=== PATIENT | female | born 1970 | race Two or more races ===

== ENCOUNTER 2021-07-09 10:47 | Inpatient (IN) | payer OTHER ==
[~2021-07-09] VITALS: Ht 180.3 cm; Wt 115.9 kg
[2021-07-09] MEDS ORDERED: MORPHINE SULFATE 4 MG/ML SYR/VIAL IV ONE (12:15)
[2021-07-09] MEDS ORDERED: ONDANSETRON HCL 4 MG/2 ML VIAL IV ONE (12:15)
[2021-07-09] MEDS ORDERED: SODIUM CHLORIDE 0.9% 500 ML IVB ONE (12:15)
[2021-07-09 12:41] LABS: Basophils # (auto) 0 10 ^3/uL (0-0.2); Basophils % (auto) 0.4 % (0.0-2.0); Eosinophils # (auto) 0 10 ^3/uL (0-0.8); Hematocrit 31.7 % (36.0-46.0); Hemoglobin 11.1 g/dL (12.2-16.2); Lymphocytes # (auto) 1.3 10 ^3/uL (0.4-5.4); Lymphocytes % (auto) 17.4 % (10.0-50.0); Mean Corpuscular Hemoglobin 29.9 pg (28.0-32.0); Mean Corpuscular Volume 85.4 fL (80.0-100.0); Monocytes # (auto) 0.6 10 ^3/uL (0-1.3); Monocytes % (auto) 8.1 % (0.0-12.0); Neutrophils # (auto) 5.3 10 ^3/uL (1.6-8.6); Neutrophils % (auto) 74.1 % (37.0-80.0); Red Blood Cells 3.71 10^6/uL (4.0-5.20); White Blood Cell 7.2 10^3/uL (4.4-10.8)
[2021-07-09 12:58] LABS: Albumin 3.3 g/dL (3.4-5.0); BUN/Creatinine Ratio 14.5; Calcium 9.1 mg/dL (8.5-10.1); Potassium 4.2 mmol/L (3.5-5.1)
[2021-07-09 13:01] LABS: Bilirubin, Total 0.6 mg/dL (0.2-1.0); Total Protein 7.5 g/dL (6.4-8.2)
[2021-07-09 15:15] LABS: Urine Bacteria FEW /hpf (None Seen); Urine Blood 1+ /uL (Negative); Urine Specific Gravity 1.014 (1.001-1.035); Urine WBC 34 /hpf (0 - 5)
[2021-07-09] MEDS ORDERED: levoFLOXacin 500MG 100 ML IV ONE (17:30)
[2021-07-09] MEDS ORDERED: MORPHINE SULFATE INJ 2 MG/ml SYRG IV PRN (17:30)
[2021-07-09] MEDS ORDERED: NITROGLYCERIN 0.4 MG SL TAB SL PRN (17:30)
[2021-07-09] MEDS ORDERED: MORPHINE SULFATE INJ 2 MG/ml SYRG IV ONE (17:45)
[2021-07-09] MEDS ORDERED: MORPHINE SULFATE 4 MG/ML SYR/VIAL ONE (17:54)
[2021-07-09] MEDS ORDERED: LABETALOL HCL 5 MG/ML 4ML SYRINGE IV PRN (20:30)
[2021-07-09] MEDS ORDERED: SODIUM CHLORIDE 0.9% 1,000 ML IV SCH (20:30)
[2021-07-09] MEDS ORDERED: CLINDAMYCIN 600MG IV 50 ML IV ONE (20:45)
[2021-07-09] MEDS ORDERED: FAMOTIDINE (10MG/ML) 2ML VL IV ONE (20:45)
[2021-07-09 21:07] LABS: Magnesium 1.2 mg/dL (1.6-2.6); Phosphorus 2.7 mg/dL (2.5-4.90)
[2021-07-09 22:00] VITALS: BP 140/84
[2021-07-09 22:34] VITALS: BP 140/84
[2021-07-09] MEDS: HYDROcodone-ACET 5/325MG TAB PO PRN (22:49)
[2021-07-10] MEDS: LORazepam 0.5 MG TAB PO PRN ×2 (00:01→11:29)
[2021-07-10] MEDS: ONDANSETRON HCL 4 MG/2 ML VIAL IV PRN ×3 (00:26→21:23)
[2021-07-10] MEDS ORDERED: MULT1TAB95 PO (01:03)
[2021-07-10] MEDS ORDERED: CLOT1CRE13 TOP (01:03)
[2021-07-10] MEDS ORDERED: LORA-622 PO (01:03)
[2021-07-10] MEDS ORDERED: METO25TA5 PO (01:03)
[2021-07-10] MEDS ORDERED: BENA-25 PO (01:03)
[2021-07-10] MEDS ORDERED: IBUP800T26 PO (01:03)
[2021-07-10] MEDS ORDERED: HYDR-3682 PO (01:03)
[2021-07-10] MEDS ORDERED: ASPI-498 PO (01:03)
[2021-07-10] MEDS ORDERED: BACL10TA PO (01:03)
[2021-07-10] MEDS ORDERED: PANT1INJ3 PO (01:03)
[2021-07-10] MEDS ORDERED: EZET10TA22 PO (01:03)
[2021-07-10] MEDS ORDERED: METF-370 PO (01:03)
[2021-07-10] MEDS ORDERED: DOCU100T15 PO (01:03)
[2021-07-10] MEDS ORDERED: ERTU5TAB PO (01:03)
[2021-07-10] MEDS ORDERED: CETI10TA2 PO (01:03)
[2021-07-10] MEDS ORDERED: CLINDAMYCIN 600MG IV 50 ML IV SCH (04:00)
[2021-07-10 05:00] VITALS: BP 119/85
[2021-07-10 07:07] LABS: Hematocrit 27.1 % (36.0-46.0); Hemoglobin 10.3 g/dL (12.2-16.2); Mean Corpuscular Hemoglobin 34.7 pg (28.0-32.0); Mean Corpuscular Volume 91.7 fL (80.0-100.0); Red Blood Cells 2.96 10^6/uL (4.0-5.20); Red Cell Distribution Width 14.2 % (11.8-14.3); White Blood Cell 3.6 10^3/uL (4.4-10.8)
[2021-07-10 07:31] LABS: Mean Corpuscular Hgb Conc. 37.9 g/dL (32.0-36.0)
[2021-07-10 07:32] LABS: Basophils % (manual) 0 (0.0-2.0); Blast Cells 0; Eosinophils % (manual) 0 (0-7); Metamyelocytes % 0; Myelocytes % 0; Promyelocytes % 0; Reactive Lymphocytes 0
[2021-07-10 08:00] VITALS: BP 122/76
[2021-07-10 08:13] LABS: Band Neutrophils % (manual) 15; Lymphocytes % (manual) 42 (10.0-50.0); Monocytes % (manual) 14 (0-12)
[2021-07-10 08:47] LABS: Albumin 3.2 g/dL (3.4-5.0); Calcium 8.6 mg/dL (8.5-10.1); Potassium 4.2 mmol/L (3.5-5.1)
[2021-07-10 08:53] LABS: Bilirubin, Total 0.8 mg/dL (0.2-1.0); Total Protein 7.3 g/dL (6.4-8.2)
[2021-07-10 09:00] VITALS: BP 122/76
[2021-07-10] MEDS: MORPHINE SULFATE INJ 2 MG/ml SYRG IV PRN ×2 (09:10→10:56)
[2021-07-10] MEDS: FAMOTIDINE (10MG/ML) 2ML VL IV SCH (09:15)
[2021-07-10] MEDS: ASPirin 81 mg TAB PO SCH (09:20)
[2021-07-10] MEDS: ENOXAPARIN SOD 40 MG/0.4 ML SYRINGE SC SCH (09:20)
[2021-07-10] MEDS: HYDROcodone-ACET 5/325MG TAB PO PRN ×2 (12:14→20:34)
[2021-07-10 13:26] VITALS: BP 106/68
[2021-07-10] MEDS: DOCUSATE SOD 100 MG CAP PO PRN (15:12)
[2021-07-10] MEDS ORDERED: MORPHINE SULFATE INJ 2 MG/ml SYRG IV ONE (15:45)
[2021-07-10 16:50] VITALS: BP 122/77
[2021-07-10 22:00] VITALS: BP 140/83
[2021-07-10] MEDS ORDERED: LACTULOSE 20Gm/30ML SOLN PO PRN (22:00)
[2021-07-10] MEDS ORDERED: TEMAZEPAM 15 MG CAP PO ONE (22:15)
[2021-07-11] MEDS: HYDROcodone-ACET 5/325MG TAB PO PRN ×4 (03:59→20:36)
[2021-07-11 09:00] VITALS: BP 119/79
[2021-07-11] MEDS: ASPirin 81 mg TAB PO SCH ×2 (10:00→10:50)
[2021-07-11] MEDS: ENOXAPARIN SOD 40 MG/0.4 ML SYRINGE SC SCH ×2 (10:00→10:51)
[2021-07-11] MEDS: FAMOTIDINE (10MG/ML) 2ML VL IV SCH ×2 (10:00→10:50)
[2021-07-11 13:00] VITALS: BP 121/77
[2021-07-11 13:05] LABS: Magnesium 1.2 mg/dL (1.6-2.6)
[2021-07-11 13:16] LABS: CRP High Sensitivity 4.49 mg/dL (< 0.3); Phosphorus 3.8 mg/dL (2.5-4.90)
[2021-07-11] MEDS ORDERED: levoFLOXacin 500MG 100 ML IV STA (14:28)
[2021-07-11] MEDS ORDERED: levoFLOXacin 500MG 100 ML IV ONE (14:30)
[2021-07-11 17:16] VITALS: BP 132/79
[2021-07-11 22:00] VITALS: BP 127/81
[2021-07-12] MEDS: HYDROcodone-ACET 5/325MG TAB PO PRN ×4 (03:04→21:41)
[2021-07-12 05:00] VITALS: BP 114/74
[2021-07-12] MEDS: ONDANSETRON HCL 4 MG/2 ML VIAL IV PRN ×3 (07:18→20:47)
[2021-07-12 09:00] VITALS: BP 135/79
[2021-07-12] MEDS: FAMOTIDINE (10MG/ML) 2ML VL IV SCH (09:35)
[2021-07-12] MEDS: ASPirin 81 mg TAB PO SCH (09:35)
[2021-07-12] MEDS: levoFLOXacin 500MG 100 ML IV SCH (09:37)
[2021-07-12] MEDS: ENOXAPARIN SOD 40 MG/0.4 ML SYRINGE SC SCH (09:37)
[2021-07-12] MEDS: DOCUSATE SOD 100 MG CAP PO PRN ×2 (09:37→20:47)
[2021-07-12 13:00] VITALS: BP 124/80
[2021-07-12 17:00] VITALS: BP 135/77
[2021-07-12] MEDS: ACCU-CHEK COMFORT CURVE STRIP VI SCH (21:16)
[2021-07-12] MEDS: GLIMEPIRIDE 2 MG TAB PO SCH (21:17)
[2021-07-12 22:00] VITALS: BP 143/86
[2021-07-12] MEDS ORDERED: ZOLPIDEM TARTRATE 5 MG TAB PO PRN (23:15)
[2021-07-13] MEDS: ACETAMINOPHEN 325 MG TAB PO PRN ×2 (02:47→09:33)
[2021-07-13] MEDS: HYDROcodone-ACET 10/325MG TAB PO PRN ×3 (03:47→17:44)
[2021-07-13] MEDS: ONDANSETRON HCL 4 MG/2 ML VIAL IV PRN ×3 (04:40→22:37)
[2021-07-13] MEDS: ACCU-CHEK COMFORT CURVE STRIP VI SCH ×3 (05:52→10:00)
[2021-07-13 09:00] VITALS: BP 128/86
[2021-07-13] MEDS: ASPirin 81 mg TAB PO SCH (09:32)
[2021-07-13] MEDS: levoFLOXacin 500MG 100 ML IV SCH (09:32)
[2021-07-13] MEDS: GLIMEPIRIDE 2 MG TAB PO SCH ×2 (09:34→22:26)
[2021-07-13] MEDS: ENOXAPARIN SOD 40 MG/0.4 ML SYRINGE SC SCH (09:35)
[2021-07-13] MEDS ORDERED: LORazepam 0.5 MG TAB PO ONE (11:50)
[2021-07-13 13:00] VITALS: BP 136/72
[2021-07-13 13:55] LABS: Basophils # (auto) 0 10 ^3/uL (0-0.2); Basophils % (auto) 0.4 % (0.0-2.0); Calcium 9.3 mg/dL (8.5-10.1); Eosinophils # (auto) 0.1 10 ^3/uL (0-0.8); Eosinophils % (auto) 1.4 % (0.0-7.0); Hematocrit 34.1 % (36.0-46.0); Lymphocytes % (auto) 45.2 % (10.0-50.0); Mean Corpuscular Hemoglobin 29.6 pg (28.0-32.0); Mean Corpuscular Hgb Conc. 35.1 g/dL (32.0-36.0); Mean Corpuscular Volume 84.5 fL (80.0-100.0); Monocytes # (auto) 0.6 10 ^3/uL (0-1.3); Monocytes % (auto) 9.2 % (0.0-12.0); Neutrophils # (auto) 2.9 10 ^3/uL (1.6-8.6); Neutrophils % (auto) 43.8 % (37.0-80.0); Nucleated Red Blood Cells % 0.1 %; Potassium 3.9 mmol/L (3.5-5.1); Red Blood Cells 4.04 10^6/uL (4.0-5.20); White Blood Cell 6.7 10^3/uL (4.4-10.8)
[2021-07-13 17:00] VITALS: BP 129/84
[2021-07-13] MEDS ORDERED: LORazepam 0.5 MG TAB PO PRN (20:00)
[2021-07-13 22:00] VITALS: BP 144/87
[2021-07-13] MEDS ORDERED: hydrOXYzine 25 MG TAB or CAP PO SCH (22:00)
[2021-07-13] MEDS: DOCUSATE SOD 100 MG CAP PO PRN (22:36)
[2021-07-14] MEDS: HYDROcodone-ACET 10/325MG TAB PO PRN ×3 (00:19→13:14)
[2021-07-14 04:51] VITALS: BP 103/71
[2021-07-14 06:56] LABS: BUN/Creatinine Ratio 23.6; Calcium 8.8 mg/dL (8.5-10.1); Potassium 3.9 mmol/L (3.5-5.1)
[2021-07-14 09:00] VITALS: BP 122/74
[2021-07-14] MEDS: ACCU-CHEK COMFORT CURVE STRIP VI SCH ×2 (10:00→10:09)
[2021-07-14] MEDS: levoFLOXacin 500MG 100 ML IV SCH (10:08)
[2021-07-14] MEDS: ASPirin 81 mg TAB PO SCH (10:08)
[2021-07-14] MEDS: ENOXAPARIN SOD 40 MG/0.4 ML SYRINGE SC SCH (10:09)
[2021-07-14] MEDS: ONDANSETRON HCL 4 MG/2 ML VIAL IV PRN (10:09)
[2021-07-14] MEDS: GLIMEPIRIDE 2 MG TAB PO SCH (10:21)
[2021-07-14] MEDS ORDERED: LEVO-28 PO (10:58)
[2021-07-14] MEDS ORDERED: HYDR-4902 PO (10:58)
[2021-07-14] MEDS: DOCUSATE SOD 100 MG CAP PO PRN (11:55)
[2021-07-14] MEDS: ACETAMINOPHEN 325 MG TAB PO PRN (11:57)
[2021-07-14 13:00] VITALS: BP 141/88
[2021-07-14 17:35] VITALS: BP 137/80
== END 2021-07-14 19:00 | disposition home or self-care (01) | DRG 530 ==
LOC: ER 10:47 → OVERFLOW 17:17 → EAST 22:00
PROVIDERS: ADMIT Hospitalist; ATTEND Internal Medicine
DX: C56.9 Malignant neoplasm of unspecified ovary (principal); N17.9 Acute kidney failure, unspecified; E88.09 Other disorders of plasma-protein metabolism, not elsewhere classified; R16.2 Hepatomegaly with splenomegaly, not elsewhere classified; N30.00 Acute cystitis without hematuria; E11.22 Type 2 diabetes mellitus with diabetic chronic kidney disease; B96.20 Unspecified Escherichia coli [E. coli] as the cause of diseases classified elsewhere; Z90.722 Acquired absence of ovaries, bilateral; N18.31 Chronic kidney disease, stage 3a; K59.00 Constipation, unspecified; Z20.822 Contact with and (suspected) exposure to COVID-19; R91.1 Solitary pulmonary nodule; N20.0 Calculus of kidney; E66.01 Morbid (severe) obesity due to excess calories; E78.2 Mixed hyperlipidemia; I25.10 Atherosclerotic heart disease of native coronary artery without angina pectoris; D64.9 Anemia, unspecified; N28.1 Cyst of kidney, acquired; I12.9 Hypertensive chronic kidney disease with stage 1 through stage 4 chronic kidney disease, or unspecified chronic kidney disease; L60.0 Ingrowing nail; N13.9 Obstructive and reflux uropathy, unspecified; N18.32 Chronic kidney disease, stage 3b; Z83.3 Family history of diabetes mellitus; Z88.0 Allergy status to penicillin; Z90.710 Acquired absence of both cervix and uterus
CPT/HCPCS: 36415; 74176; 76830; 76856; 80048; 80053; 80061; 81001; 82150; 82550; 82728; 82962; 83615; 83690; 83735; 83880; 84100; 84443; 84484; 85007; 85025; 85027; 85379; 85652; 86141; 87040; 87086; 87088; 87186; 93005; 93970; 96361; 96374; 96375; G0378; J1956; J2405; J3490